=== PATIENT | female | born 1985 | race Caucasian/White ===

== ENCOUNTER 2025-07-03 08:19 | Outpatient (CLI) | payer MEDICAID ==
[~2025-07-03 08:19] MED LIST: iohexol 300mg/ml 100ml inj. ONE
--- NOTE | 2025-07-03 10:07 | RADIOLOGY REPORT ---
Indication: PERIUMBILICAL PAIN Comparison: None Technique: Helical axial scans were performed through the abdomen and pelvis before and after after administration of 100 mL of Isovue-370 intravenously. Subsequently, coronal and sagittal reformations were obtained. Dose lowering techniques have been used including automated exposure control and adjustment of mA and/or kv according to patient size. FINDINGS: LUNG BASES: Clear LIVER: Hepatic steatosis. SPLEEN: Normal GALLBLADDER: Normal PANCREAS: Normal ADRENAL GLANDS: Normal KIDNEYS: No hydronephrosis. Left renal cyst and scattered too small to characterize hypoattenuating foci. No suspiciously enhancing solid lesion. GI: No bowel dilation or wall thickening. Normal appendix. Moderate stool burden. LYMPH NODES: Normal VASCULAR STRUCTURES: Normal BLADDER: Normal PELVIC ORGAN: Left ovarian corpus luteum measuring 1.8 cm. FREE AIR OR FREE FLUID: None OSSEOUS STRUCTURES: Normal SOFT TISSUES: Normal DLP is 2970.3 mGy-cm. CTDI vol is 67 mGy. IMPRESSION: 1. No acute abnormality in the abdomen or pelvis. 2. Hepatic steatosis. 3. Left ovarian corpus luteum measuring 1.8 cm.
== END 2025-07-03 23:59 | disposition home or self-care (01) ==
LOC: RAD 08:19
PROVIDERS: ATTEND Student in an Organized Health Care Education/Training Program
DX: K76.0 Fatty (change of) liver, not elsewhere classified (principal); R10.33 Periumbilical pain; R16.0 Hepatomegaly, not elsewhere classified; N28.1 Cyst of kidney, acquired
CPT/HCPCS: 74178; Q9967